=== PATIENT | male | born 1985 | race Caucasian/White ===

== ENCOUNTER 2018-01-25 03:06 | Observation (INO) ==
[2018-01-25] MEDS ORDERED: Lidocaine 1%/Epinephrine 1:100,000 Inj 20 ML Vial ONE (03:47)
[2018-01-25] MEDS ORDERED: Bupivacaine 0.5% Inj 50 ML MDV Vial INFILTRATN ONE (04:04)
[2018-01-25] MEDS ORDERED: Lidocaine 2%/Epinephrine 1:100,000 30 ML MDV INFILTRATN ONE (04:08)
--- NOTE | 2018-01-25 04:38 | XR ---
EXAM DATE: 01/25/2018 3:21 AM EDT AGE/SEX: 32 years / Male INDICATIONS: Rule out foreign body, stepped on an oyster shell. Laceration to right heel. CLINICAL DATA: This is the patient's initial encounter. Patient reports that signs and symptoms have been present for 1 day and indicates a pain score of 8/10. MEDICAL/SURGICAL HISTORY: None. None. COMPARISON: No prior exams available for comparison. FINDINGS: Large laceration in the heel with radiopaque foreign bodies noted in the subcutaneous soft tissues. O sseous structures appear intact. Joint spaces are maintained. CONCLUSION: 1. Large laceration in the heel with radiopaque foreign bodies noted in the subcutaneous soft tissue s. Electronically signed by: Phil Balbuena MD 01/25/2018 4:36 AM EDT
--- NOTE | 2018-01-25 05:24 | ED ---
HPI General Chief Complaint: Extremity Injury, Lower Stated Complaint: rt foot injury Time Seen by Provider: 01/25/18 03:20 Source: patient Mode of arrival: ambulatory Limitations: no limitations History of Present Illness HPI Narrative: Patient was walking on a oyster bed and had a significant laceration to the heel resulting in significant pain and discomfort to his heel. Patient has no other significant problems. Generally good health patient has had a tetanus shot in the last 5 years. Related Data Home Medications Medication Instructions Recorded Confirmed No Known Home Medications 01/25/18 01/25/18 Allergies Allergy/AdvReac Type Severity Reaction Status Date / Time erythromycin base Allergy Unknown Hives Verified 01/25/18 03:23 Review of Systems ROS: all other systems reviewed are negative [facility] Medical History Medical History Patient denies significant medical history (Acute) Surgical History Surgical History No history of previous surgery (Acute) Social History Social History Substance History: No History of Abuse Smoking Status: Current every day smoker Tobacco Type: Cigarettes How Often Do You Have a Drink Containing Alcohol: 2 to 3 times a week Recent Travel in [facility] within the Last 8 Weeks: No Recent Out of Country Travel within the Last 8 Weeks: No Immunization History Tetanus Immunization: <5 Years Hx Influenza Vaccine This Season: No Exam Narrative Exam Narrative: GENERAL: Alert and oriented SKIN: Focused skin assessment warm/dry. 3 cm LACERATION LOCATION: Left heel LENGTH: 3 cm REPAIR: The area of the laceration was prepped with Betadine and sterilely draped. The laceration was infiltrated with Lidocaine and Marcaine The wound was copiously irrigated irrigated with high flow 700 mL and explored with evidence of multiple sand small rock foreign bodies. However the large 1-1/2 to 2 cm shallow fragment could not be felt or seen. CARDIOVASCULAR: Regular rate and rhythm. No murmur appreciated. RESPIRATORY: No accessory muscle use. Clear to auscultation. Breath sounds equal bilaterally. MUSCULOSKELETAL: No obvious deformities. No clubbing. No cyanosis. No edema. Procedures Foreign Body Removal Time Out Performed: yes Foreign Body Removal Site: right and foot Description of Foreign Body: rock (Multiple small rock and sand/dirt were removed. However deep shell fragments could not be visualized or removed without fluoroscopy.) and other Sedation/Analgesia: other (Toradol) Technique: manual removal Confirmed by: direct visualization Complications: none Post procedure exam:: awake, alert Neurovascular: normal distal pulse, normal capillary fill, distal motor function normal and no change from pre-procedure Course Reevaluation(s) Reevaluation #1: Discussed with Dr. Zamarripa slot key person solution sales senior executive. Patient will be admitted to same day surgery with medicine/surgery and she will organize the operating room and surgery for this patient. Time: 06:14 Reevaluation #2: Discussed with SHANIQUA Rodas; patient admitted to [facility]/ for same day surgery Time: 06:19 Initial Documented Vital Signs Temperature 97.9 F 01/25/18 03:12 Pulse Rate 101 H 01/25/18 03:12 Respiratory Rate 18 01/25/18 03:12 Blood Pressure 134/83 01/25/18 03:12 Pulse Oximetry 98 01/25/18 03:12 Last Documented Vital Signs Temperature 97.9 F 01/25/18 03:12 Pulse Rate 101 H 01/25/18 03:12 Respiratory Rate 18 01/25/18 03:12 Blood Pressure 134/83 01/25/18 03:12 Pulse Oximetry 98 01/25/18 03:12 Critical Care Time Critical Care Time: No Medical Decision Making MDM Narrative Medical decision making narrative: Patient had significant foreign bodies to oyster LACERATION LOCATION: To right heal with deep portion of Lottie shell that was not able to be visualized without fluoroscopy. Additionally there are small fragments that broke off from the shell that hit the calcaneus. Discussion to Dr. Zamarripa covering podiatry, resulting in the patient being admitted for same-day surgery by her. Patient has no significant medical problems and patient was treated with IV antibiotics and superficial foreign bodies removed here in the emergency department. Medical Screen Exam Complete: Yes Emergency Medical Condition: Yes Lab Data Result diagrams: 01/25/18 06:25 01/25/18 06:25 Imaging Data Radiologist's impression: Foot X-Ray 01/25/18 03:21 CONCLUSION: 1. Large laceration in the heel with radiopaque foreign bodies noted in the subcutaneous soft tissues. Discharge Plan Discharge Disposition Patient Disposition: 30 Still Patient Discharge Condition Condition: Good Discharge Details Diagnosis: Foreign body (FB) in soft tissue, Laceration of foot Physicians Team ED Provider: Miguel Lucas Primary Care Provider: Primary Care Yaneth Hess Rxs /Orders / Referrals /Forms Prescriptions: No Action No Known Home Medications RF: 0 Discharge Interventions Interventions: Vital Signs Last Done: 01/25/18 03:24 Status ED Status: With Doctor
[2018-01-25] MEDS ORDERED: Acetaminophen 325 MG Tablet PO PRN (06:16)
[2018-01-25] MEDS ORDERED: Morphine Sulfate Inj 2 MG/ML Vial IV.PUSH PRN (06:19)
[2018-01-25] MEDS ORDERED: Sod Chloride 0.9% Inj 1,000 ML IV.CONT SCH (06:30)
[2018-01-25 06:36] LABS: Hematocrit 40.1 % (39.0-51.0); Hemoglobin 13.6 gm/dL (13.0-17.0); Mean Corpuscular HGB Conc 33.9 % (32.0-36.0); Mean Corpuscular Hemoglobin 30.8 pg (27.0-34.0); Mean Corpuscular Volume 90.8 fL (80.0-100.0); Mean Platelet Volume 8.9 fL (7.0-11.0); Platelet Count 170 th/mm3 (150-450); Red Blood Count 4.42 mil/mm3 (4.50-5.90); Red Cell Distribution Width 12.4 % (11.6-17.2); White Blood Count 11.9 th/mm3 (4.0-11.0)
[2018-01-25 06:47] LABS: Potassium 4.5 meq/L (3.5-5.1)
[2018-01-25 06:51] LABS: Calcium 7.9 mg/dL (8.5-10.1); Carbon Dioxide 24.7 meq/L (21.0-32.0)
[2018-01-25 07:15] LABS: Bilirubin,Urine Negative (Negative); Clarity,Urine Clear (Clear); Color,Urine Yellow (Yellw/Straw); Glucose,Urine (UA) Negative (Negative); Leukocyte Esterase,Urine Negative (Negative); Nitrite,Urine Negative (Negative); Urobilinogen,Urine 0.2 mg/dL (Less than 2)
[2018-01-25 07:17] LABS: Lymphocytes 12 % (9-44); Monocytes 9 % (0-8); RBC Morphology Normal (Normal)
[2018-01-25 07:18] LABS: Platelet Estimate Normal (Normal); Platelet Morphology Normal (Normal)
[2018-01-25 07:21] LABS: Collection Time,Urine 710 hours; Squamous Epithelial Cell,Urine 0-5 /hpf (0-5)
--- NOTE | 2018-01-25 07:57 | P.HP ---
History of Present Illness Primary Care Physician: No Primary Care Physician Chief Complaint: Foot laceration History of Present Illness: 32-year-old male with no chronic medical illnesses was [place] the [place] in January and oyster bed and lacerated the heel of his right foot, patient went home and the pain started getting too severe so he came to emergency department for evaluation. Patient had workup done with x- ray which does show a foreign body in the soft tissue. ER physician evaluated the patient and discussed with Dr. Zamarripa the finished cigar maker and she recommended the patient be admitted for same day surgery. Patient is resting comfortably in bed. Denies any complaints. Still having pain in his foot. Patient denies any fever, chills. - Diagnosis (1) Foreign body (FB) in soft tissue (2) Laceration of foot Review of Systems All other systems reviewed negative except as stated in HPI Skin/Breast: Reports wounds PMFSH - History History Provided By: Patient - Medical History Medical History: Medical History (Last Reviewed 01/25/18 @ 07:51 by SHANIQUA Fabian) Patient denies significant medical history - Surgical History Surgical History: Surgical History (Last Reviewed 01/25/18 @ 07:51 by SHANIQUA Fabian) No history of previous surgery - Family History Family History: Family History (Last Updated 01/25/18 @ 07:51 by SHANIQUA Fabian) Other No pertinent family history - Tobacco History Second Hand Smoke Exposure: Yes Tobacco Use In Past 30 Days: Yes Smoking Status: Current every day smoker Tobacco Type: Cigarettes Packs Per Day: 0.5 Years Smoked: 16 - Alcohol History How Often Do You Have a Drink Containing Alcohol: 2 to 3 times a week - Substance Use History Substance History: No History of Abuse - Travel History Recent Travel in the [place] Within the Last 8 Weeks: No Recent Travel Out of the Country Within the Last 8 Weeks: No - Immunization History Tetanus Immunization: <5 Years Hx Influenza Vaccine This Season: No Medications and Allergies Active Medications: Active Medications Acetaminophen (Tylenol) 650 mg PO Q4H PRN PRN Reason: Temp > 100.4 Sodium Chloride (Ns Inj) 1,000 mls @ 100 mls/hr IV.CONT .Q10H YANIRA Last Admin: 01/25/18 06:33 Dose: 100 mls/hr Morphine Sulfate (Morphine Inj) 2 mg IV.PUSH Q3H PRN PRN Reason: pain 1 to 10 Allergies Allergy/AdvReac Type Severity Reaction Status Date / Time erythromycin base Allergy Unknown Hives Verified 01/25/18 03:23 Exam Vital signs: Vital Signs 01/25/18 03:12 01/25/18 06:43 01/25/18 06:56 Temperature 97.9 F 97.8 F Pulse Rate 101 H 80 74 Respiratory Rate 18 16 18 Blood Pressure 134/83 118/68 122/70 Pulse Oximetry 98 96 Intake & Output 01/24/18 01/25/18 01/25/18 18:59 06:59 18:59 Intake Total 0 / 0 100 / 100 Balance 0 / 0 100 / 100 Weight 77.7 kg Intake: IV 100 / 100 Rocephin Inj 1,000 MG In NS Inj 100 / 100 100 ML @ 200 mls/hr IV.SIG ONCE ONE Rx#:[id number] Oral 0 / 0 Narrative: GENERAL: Well-developed, well-nourished, in no acute distress. alert and orientated HEENT: Head is normocephalic without any lesions or masses noted. Facial features are symmetric. Eyes: Pupils equal round reactive to light. Extraocular muscles are intact. Conjunctivae were clear. Oropharyngeal: Pharynx without any erythema edema. Tongue is midline without deviation. Buccal mucosa is moist without any masses or lesions NECK: Supple without any masses. Trachea midline no deviation. No JVD, no bruits are appreciated CARDIAC: Regular rhythm, regular rate. S1/S2 are heard. No murmurs gallops or rubs. LUNGS: Clear to auscultation bilaterally. No wheeze, rhonchi or rales. No use of accessory muscles on inspiration or expiration. ABDOMEN: Soft, nontender. Nondistended. Bowel sounds heard in all 4 quadrants. No organomegaly or masses. Negative rebound, negative guarding EXTREMITIES: No edema, pulses are equal bilaterally. No cyanosis or clubbing NEUROLOGY: Mood and affect appear appropriate. Cranial nerves II through XII grossly intact. Muscle strength 5/5 in upper and lower extremities bilaterally. Deep tendon reflexes are 2+ in upper and lower extremities bilaterally. RIGHT FOOT: Patient does have bandage in place at this time. Did not undo bandage secondary patient is preparing to go to surgery. Results - Labs CBC & Chem 7: 01/25/18 06:25 01/25/18 06:25 Labs: Laboratory Results - last 24 hr 01/25/18 01/25/18 01/25/18 06:25 06:25 07:10 CBC w Diff Slide review pending WBC 11.9 H RBC 4.42 L Hgb 13.6 Hct 40.1 MCV 90.8 MCH 30.8 MCHC 33.9 RDW 12.4 Plt Count 170 MPV 8.9 WBC Differential Manual diff final Seg Neuts % (Manual) 78 H Lymphocytes % (Manual) 12 Monocytes % (Manual) 9 H Basophils % (Manual) 1 Abs Neuts (Manual) 9.3 H Differential Comment . Platelet Estimate Normal Platelet Morphology Normal RBC Morphology Normal Sodium 140 Potassium 4.5 Chloride 106 Carbon Dioxide 24.7 Anion Gap 9 BUN 12 Creatinine 1.10 Estimated GFR 77 L Random Glucose 99 Calcium 7.9 L Ur Collection Type Clean catch Urine Color Yellow Urine Clarity Clear Urine pH 6.0 Ur Specific [place] 1.010 Urine Protein Negative Urine Glucose (UA) Negative Urine Ketones Negative Urine Occult Blood Negative Urine Nitrate Negative Urine Bilirubin Negative Urine Urobilinogen 0.2 Ur Leukocyte Esterase Negative Ur Squamous Epith Cells 0-5 Ur Microscopic Review Microscopic reviewed Urine Collection Time 710 - Imaging Impressions Foot X-Ray 01/25/18 03:21 CONCLUSION: 1. Large laceration in the heel with radiopaque foreign bodies noted in the subcutaneous soft tissues. Caprini VTE Risk Assessment Caprini VTE Risk Assessment: No/Low Risk (score <= 1) Caprini Risk Assessment Model: Point Value = 1 Point Value = 2 Point Value = 3 Point Value = 5 Age 41-60 Minor surgery BMI > 25 kg/m2 Swollen legs Varicose veins or History of unexplained or recurrent spontaneous Oral contraceptives or hormone replacement Sepsis (< 1 month) Serious lung disease, including pneumonia (< 1 month) Abnormal pulmonary function Acute myocardial infarction Congestive heart failure (< 1 month) History of inflammatory bowel disease Medical patient at bed rest Age 61-74 Arthroscopic surgery Major open surgery (> 45 min) Laparoscopic surgery (> 45 min) Malignancy Confined to bed (> 72 hours) Immobilizing plaster cast Central venous access Age >= 75 History of VTE Family history of VTE Factor V Leiden Prothrombin [id number] Lupus anticoagulant Anticardiolipin antibodies Elevated serum homocysteine Heparin-induced thrombocytopenia Other congenital or acquired thrombophilia Stroke (< 1 month) Elective arthroplasty Hip, pelvis, or leg fracture Acute spinal cord injury (< 1 month) Prophylaxis Regimen: Total Risk Factor Score Risk Level Prophylaxis Regimen 0-1 Low Early ambulation 2 Moderate Order ONE of the following: *Sequential Compression Device (SCD) *Heparin 5000 units SQ BID 3-4 Higher Order ONE of the following medications: *Heparin 5000 units SQ TID *Enoxaparin/Lovenox 40 mg SQ daily (WT < 150 kg, CrCl > 30 mL/min) *Enoxaparin/Lovenox 30 mg SQ daily (WT < 150 kg, CrCl > 10-29 mL/min) *Enoxaparin/Lovenox 30 mg SQ BID (WT < 150 kg, CrCl > 30 mL/min) AND/OR *Sequential Compression Device (SCD) 5 or more Highest Order ONE of the following medications: *Heparin 5000 units SQ TID (Preferred with Epidurals) *Enoxaparin/Lovenox 40 mg SQ daily (WT < 150 kg, CrCl > 30 mL/min) *Enoxaparin/Lovenox 30 mg SQ daily (WT < 150 kg, CrCl > 10-29 mL/min) *Enoxaparin/Lovenox 30 mg SQ BID (WT < 150 kg, CrCl > 30 mL/min) AND *Sequential Compression Device (SCD) Assessment and Plan - Assessment (1) Foreign body (FB) in soft tissue Code(s): M79.5 - Residual foreign body in soft tissue Status: Acute (2) Laceration of foot Code(s): S91.319A - Laceration without foreign body, unspecified foot, initial encounter Status: Acute - Plan Right heel laceration with foreign body -X-ray does indicate soft tissue foreign body -Podiatry was consulted and plans to take the patient to the OR today -Patient was given Rocephin in the emergency department, will start cefazolin 1 g IV every 8 hours -Continue pain control DVT prevention -Sequential compression devices Discharge Planning: Discharge home in stable condition once cleared by podiatry Activity: Ad greg. Diet: Regular diet Medication per medication reconciliation Follow-up with primary medical doctor in 1 week, follow-up with Dr. Zamarripa in 1 week
[2018-01-25] MEDS ORDERED: fentaNYL Citrate Inj 100 MCG/2 ML Ampul ONE (13:52)
[2018-01-25] MEDS ORDERED: Lidocaine 2% Inj 50 ML Vial ONE (14:05)
[2018-01-25] MEDS ORDERED: Bupivacaine PF 0.5% Inj 30 ML Vial ONE (14:05)
[2018-01-25] MEDS ORDERED: Neomycin/Polymyxin G.U. Irrigant 1 ML Ampul ONE (14:06)
[2018-01-25] MEDS ORDERED: Metoprolol Tartrate 25 MG Tablet PO ONE (14:12)
[2018-01-25] MEDS ORDERED: Chlorhexidine Gluconate 2% 1 Pack (2 Cloths) TOPICAL ONE (14:12)
[2018-01-25] MEDS ORDERED: Sodium Chlor 0.9% Inj 500 ML IV.SIG SCH (15:00)
[2018-01-25] MEDS ORDERED: Misc Info for Pharmacy OTHER STA (15:52)
[2018-01-25] MEDS ORDERED: Naloxone Inj 0.4 MG/ML Vial IV.PUSH PRN (15:52)
[2018-01-25] MEDS ORDERED: Promethazine 25 MG Supp RECTAL PRN (15:52)
[2018-01-25] MEDS ORDERED: Bisacodyl 10 MG Supp RECTAL PRN (15:52)
--- NOTE | 2018-01-25 17:05 | XR ---
EXAM DATE: 01/25/2018 12:00 AM EDT AGE/SEX: 32 years / Male INDICATIONS: Post op removal foreign body right foot. CLINICAL DATA: This is the patient's initial encounter. Patient reports that signs and symptoms have been present for 2 days and indicates a pain score of 0/10. MEDICAL/SURGICAL HISTORY: None. None. COMPARISON: HPO, FOOT COMPLETE RIGHT 3V, 01/25/2018. . FINDINGS: Multiple views of the right foot show tiny linear radiopaque foreign bodies directly adjacent to the calcaneus along its posterior lateral margin. These are best appreciated on the oblique view. Overall the number foreign bodies has decreased considerably from the prior study. Soft tissue swelling over lies the calcaneus. CONCLUSION: Small residual foreign bodies as detailed above. Electronically signed by: Leonard Moss MD 01/25/2018 5:04 PM EDT
--- NOTE | 2018-01-25 17:05 | P.DS ---
Date of admission: 01/25/18 06:32 Primary care physician: No Primary Care Physician Brief History from admission: 32-year-old male with no chronic medical illnesses was walking to the [facility] and [place] in January and oyster bed and lacerated the heel of his right foot, patient went home and the pain started getting too severe so he came to emergency department for evaluation. Patient had workup done with x- ray which does show a foreign body in the soft tissue. ER physician evaluated the patient and discussed with Dr. Zamarripa the movie operator and she recommended the patient be admitted for same day surgery. Patient is resting comfortably in bed. Denies any complaints. Still having pain in his foot. Patient denies any fever, chills. DS: Medications - Discharge Medications Prescriptions: cephalexin [Keflex] 5 mg/kg PO BID #14 cap hydrocodone-acetaminophen 1 tab PO Q6H PRN #20 tab PRN Reason: surgery Lactobacillus acidophilus 500 mmu cells PO TID #30 cap levofloxacin [Levaquin] 500 mg PO DAILY #7 tab DS: Summary Hospital Course: Mr. Bowles is a 32-year-old male. He was admitted secondary to worsening pain of his right foot. Previously he had stepped on an oyster Shell and was tending to this at home however pain and redness had worsened so he came in for evaluation. Foreign bodies were seen on x-ray imaging. Podiatry is consulted. Debridement of the wound is performed today. Follow-up x-ray shows no further evidence of foreign bodies within the wound. He is medically stable and cleared for discharge home at this time. He will discharged on Levaquin probiotics, and pain treatments. - Time Spent with Patient Total time spent providing and/or coordinating discharge services: Less than 30 minutes - Quality: VTE Deep Vein Thrombosis/Pulmonary Embolism Present on Admission: No Exam Vital signs: Vital Signs 01/25/18 03:12 01/25/18 06:43 01/25/18 06:56 Temperature 97.9 F 97.8 F Pulse Rate 101 H 80 74 Respiratory Rate 18 16 18 Blood Pressure 134/83 118/68 122/70 Pulse Oximetry 98 96 01/25/18 08:00 01/25/18 12:00 01/25/18 12:58 Temperature 97.3 F L 96.4 F L Pulse Rate 76 71 Respiratory Rate 20 20 20 Blood Pressure 123/66 123/69 Pulse Oximetry 98 01/25/18 15:50 01/25/18 16:30 Temperature 98.0 F Pulse Rate 95 H 73 Respiratory Rate 18 Blood Pressure 132/79 Pulse Oximetry 98 Intake & Output 01/24/18 01/25/18 01/25/18 18:59 06:59 18:59 Intake Total 0 / 0 1800 / 1800 Balance 0 / 0 1800 / 1800 Weight 77.7 kg Intake: IV 1800 / 1800 NS Inj 1,000 ML @ 100 mls/hr IV 1000 / 1000 .CONT .Q10H YANIRA Rx#:[id number] LR 1000 mL Inj 1,000 ML @ 30 600 / 600 mls/hr IV.SIG .Q24H YANIRA Rx#: [id number] Ancef Inj 1,000 MG In NS Inj 100 / 100 100 ML @ 200 mls/hr IV.SIG Q8H YANIRA Rx#:[id number] Rocephin Inj 1,000 MG In NS Inj 100 / 100 100 ML @ 200 mls/hr IV.SIG ONCE ONE Rx#:[id number] Oral 0 / 0 Results Procedures completed during hospitalization: Exploration and debridement of right foot laceration. Pending studies at discharge: Pending at discharge 01/25/18 Surgical [PTH] Routine Labs on day of discharge: Labs from last 24 hours 01/25/18 01/25/18 01/25/18 07:10 06:25 06:25 CBC w Diff Slide review pending WBC 11.9 H RBC 4.42 L Hgb 13.6 Hct 40.1 MCV 90.8 MCH 30.8 MCHC 33.9 RDW 12.4 Plt Count 170 MPV 8.9 WBC Differential Manual diff final Seg Neuts % (Manual) 78 H Lymphocytes % (Manual) 12 Monocytes % (Manual) 9 H Basophils % (Manual) 1 Abs Neuts (Manual) 9.3 H Differential Comment . Platelet Estimate Normal Platelet Morphology Normal RBC Morphology Normal Sodium 140 Potassium 4.5 Chloride 106 Carbon Dioxide 24.7 Anion Gap 9 BUN 12 Creatinine 1.10 Estimated GFR 77 L Random Glucose 99 Calcium 7.9 L Ur Collection Type Clean catch Urine Color Yellow Urine Clarity Clear Urine pH 6.0 Ur Specific [place] 1.010 Urine Protein Negative Urine Glucose (UA) Negative Urine Ketones Negative Urine Occult Blood Negative Urine Nitrate Negative Urine Bilirubin Negative Urine Urobilinogen 0.2 Ur Leukocyte Esterase Negative Ur Squamous Epith Cells 0-5 Ur Microscopic Review Microscopic reviewed Urine Collection Time 710 - Impressions ITS Impressions Foot X-Ray 01/25/18 03:21 CONCLUSION: 1. Large laceration in the heel with radiopaque foreign bodies noted in the subcutaneous soft tissues. Discharge Plan - Discharge Disposition Patient Disposition: Discharge Home - Discharge Condition Condition: Stable - Discharge Order Discharge Orders: Discharge Order (Routine); Ordered 01/25/18 Ordered By: Alan Souza - Discharge Details Anticipated Discharge Date: 01/25/18 - Physicians Team Primary Care Provider: Primary Care Yaneth Hess Attending Provider: Alan Souza Other Providers: Alondra Frye DPM
[2018-01-25 17:27] VITALS: O2SAT 97
[2018-01-25 17:28] VITALS: BP 138/87; PULSE 75; RESP 20; TEMP 96.6
[2018-01-25] MEDS ORDERED: Senna/Docusate Sodium 8.6/50 MG Tablet PO SCH (21:00)
[2018-01-25] MEDS ORDERED: Ciprofloxacin 250 MG Tablet PO SCH (21:00)
--- NOTE | 2018-01-25 22:08 | MP ---
cc: Alondra Frye [facility] DATE OF OPERATION: 01/25/2018 PREOPERATIVE DIAGNOSIS: Right foot foreign body. POSTOPERATIVE DIAGNOSIS: Right foot foreign body. PROCEDURES PERFORMED: 1. Right foot foreign body removal. 2. Right foot incision and drainage. ANESTHESIOLOGIST: Dr. Dumont. ANESTHESIA: General. HEMOSTASIS: Right ankle tourniquet at 250 mmHg for 23 minutes. ESTIMATED BLOOD LOSS: Less than 3 mL. INJECTABLES: Preoperatively 10 mL of 1:1 mixture of 2% lidocaine plain along with 0.5% Marcaine plain. BRIEF HISTORY: The patient is a 32-year-old male who sustained a laceration with foreign body impaction into his right heel. This was done while oyster catching in [place]. The patient did go home after his laceration, but when his pain became too severe, he decided to come to the ER for evaluation. The patient denies any nausea, vomiting, fever, diarrhea, fever or chills. No medical history. REVIEW OF SYSTEMS: A 6-point review of systems is unremarkable PROCEDURE IN DETAIL: The patient was brought into the operating room and placed on the operating room table in the supine position. After general anesthesia was administered, the right foot was prepped, scrubbed and draped in the usual sterile and aseptic manner. Attention was then directed to the right foot where the right foot and ankle was exsanguinated with care not to crush the foreign body in the right lateral heel. Attention was then directed to the right heel where a deep culture was taken, passed off the field, and sent for aerobic, anaerobic, Gram stain, culture and sensitivity as well as fungal. Foreign bodies, multiple in nature, were then removed with the largest piece approximately 1 x 1 cm, passed off the field. The foreign body, which was an oyster shell, was also cultured and sent for aerobic, anaerobic, Gram stain, culture and sensitivity. The wound was deepened using a #15 blade prior to excision of foreign body to gain appropriate deep access. The incision was then copiously irrigated with pulse lavaged with of gentamicin. The patient was given 2 of Ancef preoperatively. The incision was then closed in layers with 2-0 Vicryl deep and 2-0 nylon in a simple suture pattern to the skin. The patient tolerated the procedure completion. He was blocked with a PT block, peroneal block, as well as nerve block using 20 mL of 0.5% Marcaine plain. Dry sterile dressings were applied using Xeroform, 4 x 4s, Veda, and a light Coban. The patient tolerated the completion of the procedure and transferred to the PACU for a brief period of postop monitoring, after which he will be discharged home per PACU protocol. He will follow up with Dr. Frye within 1 week of discharge. He will be discharged home with appropriate antibiotics as well as pain medication. He will be nonweightbearing on the right heel. He will keep his dressing clean, dry and intact. Alondra Frye DPM SR/rw/do , 08:12 PM , 08:20 PM
--- NOTE | 2018-01-26 07:47 | XR ---
EXAM DATE: 01/25/2018 3:56 PM EDT AGE/SEX: 32 years / Male INDICATIONS: Removal foreign body right foot. CLINICAL DATA: This is the patient's initial encounter. Patient reports that signs and symptoms have been present for 2 days and indicates a pain score of 8/10. MEDICAL/SURGICAL HISTORY: None. None. COMPARISON: No prior exams available for comparison. FINDINGS: Bony structures are intact and in normal alignment. Osseous density is normal. There is a focal lacer ation involving the patient's heel. There is a faint radiopaque density within the soft tissues of th e heel adjacent to the laceration raising the possibility of a tiny foreign body. CONCLUSION: Faint radiopaque density within the soft tissues of the heel adjacent to the laceration raising the p ossibility of a tiny foreign body. Electronically signed by: Tate Mari MD 01/26/2018 7:46 AM EDT
== END 2018-01-25 17:49 | disposition home or self-care (01) ==
LOC: PHEDA 03:06 → PHED 03:06 → OBSVTOIN 06:32 → INTOOBSV 06:32 → PH3 07:26
PROVIDERS: ADMIT Hospitalist; ATTEND Hospitalist